=== PATIENT | female | born 1965 | race Caucasian/White ===

== ENCOUNTER → 2017-02-11 | Day surgery (SDC) | payer OTHER ==
--- NOTE | 2017-02-09 13:08 | History & Physical Pre-Op ---
General Information and HPI History of Present Illness: Nedra is a 51-year-old female with a long-standing and worsening complaint of a painful bunion right foot. The patient has undergone an extended course of conservative care, including shoe gear and activity modification, rest, immobilization and courses of NSAIDs. None of this is yielded her any significant relief. The patient presents today for preoperative surgical consultation. Allergies/Medications Allergies: Coded Allergies: Penicillins (Severe, ANAPHYLAXIS 02/06/17) adhesive tape (Intermediate, SKIN IRRITATION ... PAPER TAPE IS OK 02/06/17) latex (Intermediate, SKIN IRRITATION 02/06/17) MDX - Aspirin (GI UPSET 02/06/17) Uncoded Allergies: CLASS: 28:08 - ANALGESICS AND ANTIPYRETICS (12/11/97) Home Med list Albuterol Sulfate (Proair Hfa) 90 MCG HFA.AER.AD 2 PUF INH Q4-6 PRN PRN ASTHMA (Reported) Alprazolam (Xanax) 0.5 MG TABLET 1 TAB PO TIDPRN ANXIETY (Reported) Amlodipine Besylate 2.5 MG TABLET 1 TAB PO DAILY HTN (Reported) Butalb/Acetaminophen/Caffeine (Fioricet 50-300-40 MG Capsule) 50 MG-300 MG-40 MG CAPSULE MIGRAINE (Reported) Citalopram Hydrobromide (Celexa) 20 MG TABLET 1 TAB PO DAILY DEPRESSION ( Reported) Fluticasone-Salmeterol (Advair 100-50 Diskus) 100 MCG-50 MCG/DOSE BLST.W.DEV 1 PUF INH BID ASTHMA (Reported) Oxycodone HCl 30 MG TABLET 1 TAB PO BID PAIN (Reported) Pantoprazole Sodium (Protonix) 40 MG TABLET.DR 1 TAB PO DAILY GERD (Reported) Tramadol HCl 50 MG TABLET 1 TAB PO BIDP PAIN (Reported) Past History Medical History Cardiovascular: hypertension Respiratory: asthma Gastrointestinal: GERD Psychiatric: anxiety Surgical History Pertinent Surgical History: cholecystectomy, hysterectomy Review of Systems Review of Systems: Unremarkable except for that noted in history of present illness Exam & Diagnostic Data Physical Exam: Lungs clear bilaterally. Heart sounds rate and rhythm regular. Lower extremity physical exam demonstrates intact pedal pulses bilaterally. Both dorsalis pedis and posterior tibial arteries are palpable bilaterally. Patient without any sensory motor deficits. Deep tendon reflexes grossly intact. Patient noted to have pain with palpation range of motion through the right first metatarsophalangeal joint. The hallux is noted to be tracking in track bound. No crepitus identified with range of motion. Assessment/Plan Assessment/Plan: Hallux valgus right foot. A lengthy discussion reviewing both surgical and conservative options was held the patient at bedside and the patient elects to go forward with surgery despite the risks. As Ranked By This Provider Problem List: 1. Acquired hallux valgus of right foot Attending MD Review Statement Attending Statement Attending MD Statement: examined this patient
[~2017-02-11] VITALS: Ht 154.9 cm; Wt 67.1 kg
[~2017-02-11] MED LIST: ADVAIR 100-501 EACH INH; AMLODIPINE BES2.5 M1 PO; CELEXA20 M1 PO; FIORICET 50-301 EACH; OXYCODONE HCL30 M1 PO; PROAIR HFA8.5 GM INH; PROTONIX40 M3 PO; TRAMADOL HCL50 M1 PO; XANAX0.5 M1 PO
--- NOTE | 2017-02-14 12:49 | Operative Report ---
Operative/Inv Procedure Report Surgery Date: 02/11/17 Name of Procedure: 1 bunionectomy right foot 2 intraoperative administration of ankle block anesthesia Pre-Operative Diagnosis: 1 hallux valgus right Post-Operative Diagnosis: The same Estimated Blood Loss: scant Surgeon/Furnace Checker: CHANTAL BAHENA DPM Anesthesia: moderate sedation, block Operative/Procedure Note Note: After obtaining informed consent the patient was brought to the operating room and placed on the operating table in supine position. The patient isn't securely fastened to the operating table utilizing safety belt. After Mr.'s of IV sedation, 10 mL of 0.5% Marcaine plain was infiltrated about the patient's right ankle. A well-padded ankle tourniquet was placed about the patient's right lower extremity. 600 mg of clindamycin were delivered intravenously times one dose. The right foot and ankle then scrubbed prepped and draped in usual aseptic manner. Right lower extremity was elevated to examine to limb, which point the ankle tourniquet was inflated 250 mmHg. Attention directed dorsal aspect the right foot, where 6 cm linear incision was made just medial to the course of the extensor hallucis longus tendon. The skin was sized 15 blade and deepened subtenons tissues. The dissection was then carried down to the capsule where an inverted L capsulotomy was performed exposing the medial eminence. This was then resected with sagittal bone saw. Attention was directed first interspace where a lateral release was performed with resection of the fibular suspensory ligament and the oblique head of the abductor hallucis tendon. The extensor hallucis brevis tendon was identified and tenotomized. A Chevron type osteotomy was then performed and the capital fragment was transposed laterally. It was then fixated utilizing standard AO fixation techniques. The medial shelf was resected and the capsular structures were repaired with 3-0 Vicryl. Subtenons tissues reports a 4-0 Vicryl and the skin edges reapproximated 4-0 Monocryl. Incision was dressed with Steri-Strips Xeroform 4 x 4's Kerlix and Rigoberto wrap. The patient was noted to tolerate both procedure and anesthesia well and the patient was transported from the operating room to recovery with vital signs stable best assess intact all digits right foot.
== END ==
LOC: STS 01:08
DX: M20.11 Hallux valgus (acquired), right foot (principal); I10 Essential (primary) hypertension; J45.909 Unspecified asthma, uncomplicated
CPT/HCPCS: J2001; J2250